=== PATIENT | male | born 1990 | race Two or more races ===

== ENCOUNTER 2022-03-13 10:18 | Emergency (ER) | payer OTHER ==
[~2022-03-13] VITALS: Ht 175.3 cm; Wt 67.1 kg
== END 2022-03-13 16:14 | disposition home or self-care (01) ==
LOC: ER 10:18
DX: K62.5 Hemorrhage of anus and rectum (principal); R10.9 Unspecified abdominal pain; Z91.018 Allergy to other foods
CPT/HCPCS: 36415; 74177; Q9965